=== PATIENT | male | born 1965 | race Caucasian/White ===

== ENCOUNTER → 2020-01-27 12:49 | Outpatient (BNVA) | payer MEDICARE, SELFPAY | PROVIDERS: Family Provider Internal Medicine; PCP Internal Medicine; Visit Provider Nurse Practitioner | DX: F25.0 Schizoaffective disorder, bipolar type (principal) | CPT/HCPCS: 99214 ==

== ENCOUNTER → 2020-03-25 08:31 | Outpatient (BNVA) | payer MEDICARE, SELFPAY | PROVIDERS: Family Provider Internal Medicine; PCP Internal Medicine; Visit Provider Nurse Practitioner | DX: F25.0 Schizoaffective disorder, bipolar type (principal); F41.1 Generalized anxiety disorder | CPT/HCPCS: 99213 ==

== ENCOUNTER → 2020-05-19 08:47 | Outpatient (BNVA) | payer MEDICARE, SELFPAY | PROVIDERS: Family Provider Internal Medicine; PCP Internal Medicine; Visit Provider Nurse Practitioner | DX: F25.0 Schizoaffective disorder, bipolar type (principal) | CPT/HCPCS: 99213 ==

== ENCOUNTER → 2020-06-26 11:48 | Outpatient (BNVA) | payer MEDICARE, SELFPAY | PROVIDERS: Family Provider Internal Medicine; PCP Internal Medicine; Visit Provider Nurse Practitioner | DX: F25.0 Schizoaffective disorder, bipolar type (principal); Z79.899 Other long term (current) drug therapy | CPT/HCPCS: 36415; 80061; 80178; 83036 ==

== ENCOUNTER → 2020-07-07 09:13 | Outpatient (BNVA) | payer MEDICARE, SELFPAY | PROVIDERS: Family Provider Internal Medicine; PCP Internal Medicine; Visit Provider Nurse Practitioner | DX: F25.0 Schizoaffective disorder, bipolar type (principal); F90.2 Attention-deficit hyperactivity disorder, combined type | CPT/HCPCS: 99214 ==

== ENCOUNTER → 2020-10-30 09:01 | Outpatient (BNVA) | payer MEDICARE, SELFPAY | PROVIDERS: Family Provider Internal Medicine; PCP Internal Medicine; Visit Provider Nurse Practitioner | DX: F25.0 Schizoaffective disorder, bipolar type (principal) | CPT/HCPCS: 99213 ==

== ENCOUNTER → 2021-04-05 12:06 | Outpatient (BNVA) | payer MEDICARE, SELFPAY | PROVIDERS: Family Provider Internal Medicine; PCP Internal Medicine; Visit Provider Nurse Practitioner | DX: F25.0 Schizoaffective disorder, bipolar type (principal) | CPT/HCPCS: 99214 ==

== ENCOUNTER → 2021-06-29 08:08 | Outpatient (BNVA) | payer MEDICARE, SELFPAY | PROVIDERS: Family Provider Internal Medicine; PCP Internal Medicine; Visit Provider Nurse Practitioner | DX: F25.0 Schizoaffective disorder, bipolar type (principal) | CPT/HCPCS: 99214 ==

== ENCOUNTER → 2021-09-13 14:55 | Outpatient (BNVA) | payer MEDICARE, SELFPAY | PROVIDERS: PCP Internal Medicine; Visit Provider Internal Medicine | DX: B18.2 Chronic viral hepatitis C (principal) | CPT/HCPCS: 80053; 82105; 87902 ==

== ENCOUNTER → 2021-09-23 08:31 | Outpatient (BNVA) | payer MEDICARE, SELFPAY | PROVIDERS: PCP Internal Medicine; Visit Provider Nurse Practitioner | DX: F25.0 Schizoaffective disorder, bipolar type (principal) | CPT/HCPCS: 99214 ==

== ENCOUNTER → 2021-10-27 10:25 | Outpatient (BNVA) | payer MEDICARE, SELFPAY | PROVIDERS: PCP Internal Medicine; Visit Provider Internal Medicine | DX: B19.20 Unspecified viral hepatitis C without hepatic coma (principal) | CPT/HCPCS: 87522 ==

== ENCOUNTER → 2021-12-16 07:32 | Outpatient (BNVA) | payer MEDICARE, SELFPAY | PROVIDERS: PCP Internal Medicine; Visit Provider Nurse Practitioner | DX: F25.0 Schizoaffective disorder, bipolar type (principal) | CPT/HCPCS: 99214 ==

== ENCOUNTER → 2021-12-27 11:45 | Outpatient (BNVA) | payer MEDICARE, SELFPAY | PROVIDERS: PCP Internal Medicine; Visit Provider Internal Medicine | DX: B19.20 Unspecified viral hepatitis C without hepatic coma (principal) | CPT/HCPCS: 87522 ==

== ENCOUNTER → 2022-01-16 17:31 | Outpatient (BNVA) | payer MEDICARE, SELFPAY | PROVIDERS: PCP Internal Medicine; Visit Provider Nurse Practitioner | DX: M25.522 Pain in left elbow (principal) | CPT/HCPCS: 73080 ==

== ENCOUNTER → 2022-03-21 07:40 | Outpatient (BNVA) | payer MEDICARE, SELFPAY | PROVIDERS: PCP Internal Medicine; Visit Provider Nurse Practitioner | DX: F25.0 Schizoaffective disorder, bipolar type (principal); Z79.899 Other long term (current) drug therapy | CPT/HCPCS: 80061; 80178; 83036; 99214 ==

== ENCOUNTER → 2022-06-01 12:40 | Outpatient (BNVA) | payer MEDICARE, SELFPAY | PROVIDERS: PCP Internal Medicine; Visit Provider Nurse Practitioner | DX: Z79.899 Other long term (current) drug therapy (principal) | CPT/HCPCS: 80178; 84443 ==

== ENCOUNTER → 2022-06-14 08:50 | Outpatient (BNVA) | payer MEDICARE, SELFPAY | PROVIDERS: PCP Internal Medicine; Visit Provider Psychiatry & Neurology Psychiatry | DX: Z79.899 Other long term (current) drug therapy (principal) | CPT/HCPCS: 80178 ==

== ENCOUNTER → 2022-06-29 12:44 | Outpatient (BNVA) | payer MEDICARE, SELFPAY | PROVIDERS: PCP Internal Medicine; Referring Provider Internal Medicine; Visit Provider Specialist | DX: X58.XXXA Exposure to other specified factors, initial encounter (principal); M77.12 Lateral epicondylitis, left elbow; S46.912A Strain of unspecified muscle, fascia and tendon at shoulder and upper arm level, left arm, initial encounter | CPT/HCPCS: 73080; 99203 ==

== ENCOUNTER 2022-07-13 11:23 | Outpatient (RCR) | payer MEDICARE, SELFPAY | END 2022-07-20 23:59 | disposition home or self-care (01) | LOC: SOT 11:23 | PROVIDERS: PCP Internal Medicine; Visit Provider Specialist | DX: M77.12 Lateral epicondylitis, left elbow (principal) | CPT/HCPCS: 97035; 97110; 97140; 97166 ==

== ENCOUNTER 2022-07-21 06:00 | Outpatient (RCR) | payer MEDICARE, SELFPAY | END 2022-08-19 23:59 | disposition home or self-care (01) | LOC: SOT 06:00 | PROVIDERS: PCP Internal Medicine; Visit Provider Specialist | DX: M77.12 Lateral epicondylitis, left elbow (principal) | CPT/HCPCS: 97035; 97110; 97140 ==

== ENCOUNTER 2023-03-02 01:03 | Outpatient (CLI) | payer MEDICARE, SELFPAY | END 2023-03-02 01:04 | disposition home or self-care (01) | LOC: SLEEP 01:04 | PROVIDERS: PCP Internal Medicine; Visit Provider Physician Assistant Medical | DX: G47.33 Obstructive sleep apnea (adult) (pediatric) (principal); Z78.9 Other specified health status | CPT/HCPCS: G0399 ==

== ENCOUNTER → 2023-03-20 10:12 | Outpatient (BNVA) | payer MEDICARE, SELFPAY | PROVIDERS: PCP Internal Medicine; Visit Provider Nurse Practitioner | DX: Z79.899 Other long term (current) drug therapy (principal); F25.0 Schizoaffective disorder, bipolar type | CPT/HCPCS: 80061; 80178; 83036 ==

== ENCOUNTER 2023-04-10 20:00 | Outpatient (CLI) | payer MEDICARE, SELFPAY | END 2023-04-10 20:01 | disposition home or self-care (01) | LOC: SLEEP 04-11 05:36 | PROVIDERS: PCP Internal Medicine; Visit Provider Physician Assistant Medical | DX: G47.33 Obstructive sleep apnea (adult) (pediatric) (principal); Z78.9 Other specified health status | CPT/HCPCS: 95810 ==

== ENCOUNTER → 2023-06-26 08:12 | Outpatient (BNVA) | payer MEDICARE, SELFPAY | PROVIDERS: PCP Internal Medicine; Visit Provider Podiatrist Foot & Ankle Surgery | DX: M20.42 Other hammer toe(s) (acquired), left foot; M20.41 Other hammer toe(s) (acquired), right foot; M21.621 Bunionette of right foot; M20.21 Hallux rigidus, right foot; M21.41 Flat foot [pes planus] (acquired), right foot; M21.42 Flat foot [pes planus] (acquired), left foot | CPT/HCPCS: 73630; 99204 ==

== ENCOUNTER → 2024-04-23 09:01 | Outpatient (BNVA) | payer MEDICARE, SELFPAY | PROVIDERS: PCP Internal Medicine; Visit Provider Nurse Practitioner | DX: Z79.899 Other long term (current) drug therapy (principal) | CPT/HCPCS: 80061; 80178; 83036; 84443 ==

== ENCOUNTER → 2024-11-28 09:45 | Outpatient (BNVA) | payer MEDICARE, SELFPAY | PROVIDERS: PCP Internal Medicine; Visit Provider Family Medicine | DX: Z13.6 Encounter for screening for cardiovascular disorders (principal); Z12.5 Encounter for screening for malignant neoplasm of prostate; N40.0 Benign prostatic hyperplasia without lower urinary tract symptoms; Z79.899 Other long term (current) drug therapy | CPT/HCPCS: 80053; 80061; 80178; 84153; 84439; 84443; 85025 ==

== ENCOUNTER 2024-12-16 09:42 | Outpatient (CLI) | payer MEDICARE, SELFPAY ==
--- NOTE | 2024-12-16 10:00 | CT_ITS ---
WS: [id number] LDCT LUNG CANCER SCREENING TECHNIQUE: Noncontrast CT of the chest with coronal and sagittal reformatted images. CLINICAL INFORMATION: screening COMPARISON: None. DLP: 104.01 mGy.cm DIvol: Mean CTDIvol: 2.20 (mGy) All CT scans at [facility] use at least one of these dose optimization techniques: automat ed exposure control; mA and/or kV adjustment per patient size (includes targeted exams where dose is matched to clinical indication); or iterative reconstruction. FINDINGS: 4 mm subpleural nodule LEFT lower lobe. Noncalcified nodule LEFT lower lobe measuring 3 mm. Fibrosis in the lung apices. Subsegmental atelectasis in the lingula. Subsegmental atelectasis RIGHT middle lo be. No mediastinal or hilar lymphadenopathy. No axillary lymphadenopathy. Adrenal glands are normal. Hepa tomegaly. Normal GE junction. CT/CT lung screening [id number] IMPRESSION: LUNG-RADS: 2-Benign Appearance or Behavior FOLLOW UP: 12 Month: Continue annual screening with LDCT
== END 2024-12-16 09:43 | disposition home or self-care (01) ==
LOC: RAD 09:45
PROVIDERS: PCP Family Medicine; Visit Provider Family Medicine
DX: Z12.2 Encounter for screening for malignant neoplasm of respiratory organs (principal); F17.219 Nicotine dependence, cigarettes, with unspecified nicotine-induced disorders; R91.8 Other nonspecific abnormal finding of lung field; J84.10 Pulmonary fibrosis, unspecified; J98.11 Atelectasis; R16.0 Hepatomegaly, not elsewhere classified
CPT/HCPCS: 71271

== ENCOUNTER → 2025-01-20 09:56 | Outpatient (BNVA) | payer MEDICARE, SELFPAY | PROVIDERS: PCP Family Medicine; Visit Provider Family Medicine | DX: E03.9 Hypothyroidism, unspecified (principal) | CPT/HCPCS: 84439; 84443 ==

== ENCOUNTER → 2025-02-20 13:21 | Outpatient (BNVA) | payer MEDICARE, SELFPAY | PROVIDERS: PCP Family Medicine; Visit Provider Family Medicine | DX: E03.9 Hypothyroidism, unspecified (principal); Z86.39 Personal history of other endocrine, nutritional and metabolic disease | CPT/HCPCS: 84439; 84443; 86376 ==

== ENCOUNTER → 2025-03-03 14:05 | Outpatient (BNVA) | payer OTHER, SELFPAY | PROVIDERS: PCP Family Medicine; Visit Provider Nurse Practitioner | DX: F25.0 Schizoaffective disorder, bipolar type (principal); Z79.899 Other long term (current) drug therapy | CPT/HCPCS: 83036 ==

== ENCOUNTER → 2025-09-29 11:36 | Outpatient (BNVA) | payer MEDICARE, SELFPAY ==
[2025-03-07 13:40] VITALS: BP 138/85; BMI 30.9
== END ==
PROVIDERS: PCP Family Medicine; Visit Provider Family Medicine
DX: E03.9 Hypothyroidism, unspecified (principal); Z86.39 Personal history of other endocrine, nutritional and metabolic disease; Z79.899 Other long term (current) drug therapy
CPT/HCPCS: 80053; 80178; 84439; 84443; 85025; 86376